=== PATIENT | male | born 1965 | race Caucasian/White ===

== ENCOUNTER 2018-10-09 12:47 | Day surgery (SDC) | payer OTHER ==
[~2018-10-09 12:47] MED LIST: CLINDAMYCIN 900 MG/D5W (PMX) 50 ML IVPB
[2018-10-09] MEDS ORDERED: LIDOCAINE 1% (STERILE-PAK) 30 ML INJ ×2 (14:22→14:52)
[2018-10-09] MEDS ORDERED: BUPIVACAINE 0.5% (SDV) 30 ML INJ (14:52)
[2018-10-09] MEDS ORDERED: SEVOFLURANE 15 MIN (15:00)
[2018-10-09] MEDS ORDERED: MIDAZOLAM 1 MG/ML 2 ML INJ (15:06)
[2018-10-09] MEDS ORDERED: ROPIVACAINE 0.5 % 30 ML VIAL (15:19)
[2018-10-09] MEDS: BUPIVACAINE 0.5% (SDV) 30 ML INJ (15:45)
[2018-10-09] MEDS: POLYMYXIN/BACITRACIN 1L IRRIG IRR (15:53)
[2018-10-09] MEDS ORDERED: LIDOCAINE 2% (SDV) 5 ML INJ (17:16)
[2018-10-09] MEDS ORDERED: PROPOFOL 20 ML (17:16)
[2018-10-09] MEDS ORDERED: CEFAZOLIN 1 GM INJ (17:16)
[2018-10-09] MEDS ORDERED: METOCLOPRAMIDE 10 MG INJ IV (17:30)
[2018-10-09] MEDS ORDERED: LABETALOL HCL 20MG INJ IV (17:30)
[2018-10-09] MEDS: ONDANSETRON 4 MG INJ IV (17:31)
[2018-10-09] MEDS: MEPERIDINE 25 MG INJ IV (17:31)
[2018-10-09] MEDS: LACTATED RINGER'S 1,000 ML IV* (17:41)
[2018-10-09] MEDS: HYDROmorphONE 1 MG/5 ML IV SYRINGE IV ×3 (17:41→18:00)
[2018-10-09] MEDS: hydrALAzine 20 MG INJ IV (18:04)
[2018-10-09] MEDS: FENTAnyl 50 MCG/ML VIAL IV (18:07)
== END 2018-10-09 19:01 | disposition home or self-care (01) ==
LOC: SDS 12:47
DX: S62.232 Other displaced fracture of base of first metacarpal bone, left hand (principal); X58.XXXD Exposure to other specified factors, subsequent encounter; M18.32 Unilateral post-traumatic osteoarthritis of first carpometacarpal joint, left hand
CPT/HCPCS: 26841; 73140